=== PATIENT | female | born 1965 | race Caucasian/White ===

== ENCOUNTER → 2023-06-01 | Emergency (ER) | payer BC, SELFPAY ==
[~2023-06-01] MED LIST: AMOX/K CLAV 875 MG TAB ONE; HYDROCODONE/APAP 7.5/325 MG TAB ONE
--- NOTE | 2023-06-01 16:31 | ER ---
Nurse's Notes [facility] Name: Alcira Canchola Age: 58 yrs Sex: Female : 1965 Arrival Date: 06/01/2023 Time: 16:14 Bed IW2 Private MD: Diagnosis: Other specified disorders of teeth and supporting structures Presentation: 06/01 16:26 Chief complaint: Bottom right molar pain 10/10 x 2 days. Coronavirus screen: At this hb time, the client does not indicate any symptoms associated with coronavirus-19. Ebola Screen: No symptoms or risks identified at this time. Initial Sepsis Screen: Does the patient meet any 2 criteria? No. Patient's initial sepsis screen is negative. Does the patient have a suspected source of infection? No. Patient's initial sepsis screen is negative. Risk Assessment: Do you want to hurt yourself or someone else? Patient reports no desire to harm self or others. Onset of symptoms was May 31, 2023. 16:26 Method Of Arrival: Ambulatory hb 16:26 Acuity: LISA 4 hb Historical: - Allergies: 16:28 No Known Allergies; hb - Immunization history:: Adult Immunizations up to date. - Social history:: Smoking status: Patient denies any tobacco usage or history of. Screenin:30 [facility] ED Fall Risk Assessment (Adult) Score/Fall Risk Level 0 - 2 = Low Risk hb Oriented to surroundings, Maintained a safe environment, Educated pt \T\ family on fall prevention, incl call for assistance when getting out of bed. Abuse screen: Denies threats or abuse. Denies injuries from another. Nutritional screening: No deficits noted. Tuberculosis screening: No symptoms or risk factors identified. Assessment: 16:30 General: Appears in no apparent distress. Behavior is calm, cooperative. Pain: Pain hb currently is 10 out of 10 on a pain scale. Neuro: Level of Consciousness is awake, alert, obeys commands, Oriented to person, place, time, situation. Cardiovascular: Patient's skin is warm and dry. Respiratory: Respiratory effort is even, unlabored, Respiratory pattern is regular, symmetrical. GI: No signs and/or symptoms were reported involving the gastrointestinal system. : No signs and/or symptoms were reported regarding the genitourinary system. EENT: Reports right lower molar pain. Derm: Skin is pink, warm \T\ dry. Musculoskeletal: No signs and/or symptoms reported regarding the musculoskeletal system. Vital Signs: 16:26 BP 171 / 90; Pulse 86; Resp 16; Temp 98.1; Pulse Ox 100% on R/A; Weight 70.31 kg; hb Height 5 ft. 6 in. ; Pain 10/10; 16:26 Body Mass Index 25.02 (70.31 kg, 167.64 cm) hb 16:26 Pain Scale: Adult hb ED Course: 16:19 Patient arrived in ED. ts1 16:20 Jenifer Kyle FNP-C is [facility]. kb 16:20 Froylan Russell MD is Attending Physician. kb 16:28 Triage completed. hb 16:28 Arm band placed on. hb 16:30 Patient has correct armband on for positive identification. Provided Education on: hb medication . 16:30 No provider procedures requiring assistance completed. Patient did not have IV access hb during this emergency room visit. Administered Medications: 16:37 Drug: Hydrocodone-Acetaminophen PO (7.5 mg-325 mg) 1 tabs PO once Route: PO; hb 16:37 Drug: Amoxicillin-Clavulanate PO 875 mg PO once Route: PO; hb Medication: 16:35 VIS not applicable for this client. hb Outcome: 16:31 Discharge ordered by MD. kb 16:35 Discharged to home ambulatory, hb 16:35 Condition: stable 16:35 Discharge instructions given to patient, Instructed on discharge instructions, follow up and referral plans. medication usage, Demonstrated understanding of instructions, follow-up care, medications, Prescriptions given X 2, 16:37 Patient left the ED. hb Signatures: Jenifer Kyle FNP-C FNP-Jessica Woods, RN RN April Wilcox PAS PAS ts1 Corrections: (The following items were deleted from the chart) 16:52 16:30 Provided Education on: . hb hb
--- NOTE | 2023-06-01 16:31 | EDPHYS ---
Physician Documentation [facility] Name: Alcira Canchola Age: 58 yrs Sex: Female : 1965 Arrival Date: 06/01/2023 Time: 16:14 Bed IW2 Private MD: ED Physician Froylan Russell HPI: 06/01 17:06 This 58 yrs old Female presents to ER via Ambulatory with complaints of Abscess, Tooth kb pain. 17:07 Patient is a 58-year-old female who presents for dental pain that started in July 2022 kb and has been intermittent since then. States she had a for plane yesterday and the pain has been more severe since then. Has been taking Tylenol and Aleve without relief. Reports she has a third appointment with her dentist on for a root canal due to this ongoing pain.. Historical: - Allergies: 16:28 No Known Allergies; hb - Immunization history:: Adult Immunizations up to date. - Social history:: Smoking status: Patient denies any tobacco usage or history of. ROS: 17:06 Constitutional: Negative for fever, chills, and weight loss, kb 17:06 ENT: Positive for dental pain, 17:06 All other systems are negative, Exam: 17:06 Constitutional: This is a well developed, well nourished patient who is awake, alert, kb and in no acute distress. Head/Face: Normocephalic, atraumatic. ENT: Moist Mucous membranes Cardiovascular: Regular rate Respiratory: Respirations even and unlabored. No increased work of breathing. Talking in full sentences Skin: Warm, dry with normal turgor. Normal color. MS/ Extremity: Pulses equal, no cyanosis. Neurovascular intact. Full, normal range of motion. Neuro: Awake and alert, GCS 15, oriented to person, place, time, and situation. Moves all extremities. Normal gait. Vital Signs: 16:26 BP 171 / 90; Pulse 86; Resp 16; Temp 98.1; Pulse Ox 100% on R/A; Weight 70.31 kg; hb Height 5 ft. 6 in. ; Pain 10/10; 16:26 Body Mass Index 25.02 (70.31 kg, 167.64 cm) hb 16:26 Pain Scale: Adult hb MDM: 16:20 Patient medically screened. kb 17:07 Differential diagnosis: dental caries, gingivitis, dental abscess, pericoronitis. Data kb reviewed: vital signs, nurses notes. Counseling: I had a detailed discussion with the patient and/or guardian regarding the historical points, exam findings, and any diagnostic results supporting the discharge/admit diagnosis, the need for outpatient follow up, a dentist, to return to the emergency department if symptoms worsen or persist or if there are any questions or concerns that arise at home. ED course: Patient states she has an appointment scheduled with her dentist on but will call Saturday for an earlier appointment.. Administered Medications: 16:37 Drug: Hydrocodone-Acetaminophen PO (7.5 mg-325 mg) 1 tabs PO once Route: PO; hb 16:37 Drug: Amoxicillin-Clavulanate PO 875 mg PO once Route: PO; hb Disposition Summary: 06/01/23 16:31 Discharge Ordered Notes: Location: Home kb Condition: Stable kb Diagnosis - Other specified disorders of teeth and supporting structures kb Followup: kb - With: Emergency Department - When: As needed - Reason: Worsening of condition Followup: kb - With: Private Physician - When: 2 - 3 days - Reason: Recheck today's complaints, Continuance of care, Re-evaluation by your physician Discharge Instructions: - Discharge Summary Sheet kb - Dental Pain, [id number] kb Forms: - Medication Reconciliation Form kb - Thank You Letter kb - Antibiotic Education kb - Prescription Opioid Use kb - Patient Portal Instructions kb - Leadership Thank You Letter kb Prescriptions: - Augmentin 875-125 mg Oral Tablet - take 1 tablet ORAL route every 12 hours for 10 days; 20 tablet; Refills: 0, kb Product Selection Permitted - Tramadol 50 mg Oral Tablet - take 1 tablet ORAL route every 8 hours as needed; 12 tablet; Refills: 0, kb Product Selection Permitted Signatures: Jenifer Kyle, [employer]-Jessica Woods, RN RN
[2023-06-01 16:58] VITALS: BP 171/90; TEMP 98.1; O2SAT 100
== END ==
LOC: ER 16:14
DX: K08.89 Other specified disorders of teeth and supporting structures (principal)
CPT/HCPCS: 99283